=== PATIENT | male | born 1985 | race Caucasian/White ===

== ENCOUNTER 2017-11-17 20:47 | Inpatient (IN) ==
--- NOTE | 2017-11-17 21:21 | ED ---
HPI General Chief complaint: Psychiatric Symptoms Stated complaint: [facility] [place] [facility]/Psych Eval Time Seen by Provider: 11/17/17 21:06 History of Present Illness HPI narrative: 32-year-old male transferred here from [facility] under a Rose act for psychiatric evaluation. According to his Rose act form the patient "had guns and knife outPO called. Severely lacking insight." According to his paperwork the patient has been exhibiting paranoia, hyper mu-ism thought processes as well as suicidal ideation. Gone up to his head according to his paperwork. Patient reports that he was feeling suicidal briefly but is not anymore. Denies any homicidal ideation, auditory visual endorses marijuana use, denies any other drug use. Symptoms are moderate, duration unknown, no obvious aggravating or relieving with he has no medical complaints at this time. He was medically cleared at [facility]. Related Data Allergies Allergy/AdvReac Type Severity Reaction Status Date / Time No Known Allergies Allergy Unverified 11/17/17 21:15 Review of Systems Except as stated in HPI: all other systems reviewed are negative Exam Narrative Exam Narrative: GENERAL: Well-developed well-nourished male in no acute distress SKIN: Warm and dry. HEAD: Atraumatic. Normocephalic. EYES: Pupils equal and round. No scleral icterus. No injection or drainage. ENT: No nasal bleeding or discharge. Mucous membranes pink and moist. NECK: Trachea midline. No JVD. CARDIOVASCULAR: Regular rate and rhythm. No murmur appreciated. RESPIRATORY: No accessory muscle use. Clear to auscultation. Breath sounds equal bilaterally. GASTROINTESTINAL: Abdomen soft, non-tender, nondistended. Hepatic and splenic margins not palpable. MUSCULOSKELETAL: No obvious deformities. No clubbing. No cyanosis. No edema. NEUROLOGICAL: Awake and alert. No obvious cranial nerve deficits. Motor grossly within normal limits. Normal speech. Medical Decision Making MDM Narrative Medical decision making narrative: Mental health screening discussed with the patient. Psychiatric screen ordered. I reviewed his lab work from [facility]. Urinalysis, CBC, CMP, acetaminophen and salicylate levels, alcohol level with no significant abnormalities. Drug screen was positive for cannabinoids otherwise unremarkable. He remains medically cleared. Differential Diagnosis Differential Diagnosis: Bipolar disorder, acute psychosis, schizophrenia, schizoaffective disorder, adjustment reaction, major depressive disorder, substance-induced mood disorder Discharge Plan Discharge Disposition Patient Disposition: 30 Still Patient Discharge Condition Condition: Stable Discharge Details Diagnosis: Encounter for medical clearance for patient hold Physicians Team ED Provider: Arsalan Luo ED Midlevel Provider: Mohan Clark Discharge Interventions Interventions: Vital Signs Last Done: 11/17/17 21:00 Status ED Status: With Doctor
[2017-11-18] MEDS ORDERED: Aluminum/Magnesium/Simethacone Susp 30 ML UDC PO PRN (08:25)
[2017-11-18] MEDS ORDERED: Bisacodyl 10 MG Supp RECTAL PRN (08:25)
[2017-11-18] MEDS ORDERED: Haloperidol Inj 5 MG/ML Ampul IM PRN (08:25)
--- NOTE | 2017-11-18 14:44 | P.HPPSY ---
Provisional Diagnosis Admission Date: November 18, 2017 08:25 [place] I.: Unspecified psychosis, R/O substance-induced psychosis, r/o first break of schizophrenia, cannabis use disorder Competence Certification of Person's Competence To Provide Express and Informed Consent I have personally examined Hussein Cummins, a person being served at [facility] on, November 18, 2017 1413. Express and informed consent means consent voluntarily given in writing, by a competent person, after sufficient explanation and disclosure of the subject matter involved to enable the person to make a knowing and willful decision without any element of force, fraud, deceit, duress, or other form of constraint or coercion. This person is 18 years of age or older, is not now known to be incompetent to consent to treatment with a guardian advocate, and does not have a health care surrogate or proxy currently making medical treatment decisions. I have found this person to be one of the following: [] Competent to provide express and informed consent, as defined above, for voluntary admission to this facility and is competent to provide express and informed consent for treatment. He/she has the consistent capacity to make well reasoned, willful, and knowing decisions concerning his or her medical or mental health treatment. The person fully and consistently understands the purpose of the admission for examination/placement and is fully capable of personally exercising all rights assured [place] Incompetent to provide express and informed consent to voluntary admission, and this is incompetent to provide express and informed consent to treatment. The person must be transferred to involuntary status and a petition for a guardian advocate filed with the Circuit Court. [x] Refusing to provide express and informed consent to voluntary admission but is competent to provide express and informed consent for treatment. The person must be discharged or transferred to involuntary status. Form shall be completed within 24 hours of a person's arrival at the receiving facility and filed in the clinical record of each person: 1. Admitted on a voluntary basis 2. Permitted to provide express and informed consent to his/her own treatment 3. Allowed to transfer from involuntary to voluntary status 4. Prior to permitting a person to consent to his or her own treatment after having been previously found incompetent to consent to treatment. 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 According to his Rose act form the patient "had guns and knife outPO called. Severely lacking insight." According to his paperwork the patient has been exhibiting paranoia, hyper sabianist thought processes as well as suicidal ideation. Gone up to his head according to his paperwork. Patient reports that he was feeling suicidal briefly but is not anymore. Denies any homicidal ideation, auditory visual endorses marijuana use , denies any other drug use. Symptoms are moderate, duration unknown, no obvious aggravating or relieving with he has no medical complaints at this time. He was medically cleared at [facility]. EMR was reviewed. Case was discussed with ER staff. Collateral information from patient's father was obtained. On my psychiatric evaluation I find a patient that is calm, cooperative and pleasant. The patient reports that he has been increasingly paranoid, feeling that people want to hurt him, having very bizarre thinking "most probably secondary to the use of marijuana". The patient states that is very probable that some other drugs were laced in the marijuana. At the moment of my evaluation the patient is logical, coherent and relevant. He is oriented 3, he reports good mood, denies depressive symptoms, denies suicidal and homicidal ideation, denies visual and auditory hallucinations. The patient expressed concern about recent behavior, especially because "my mother was very severe schizophrenic, I do want to lose my job, I do want to lose my right to bare guns and my life". Collateral information from his father Kyaw Cummins, , was obtained. His father reports that he lives in [place], but once he was notified of the situation he flew to the [place]. He says that he had a very difficult experience with patient's mother when she became psychotic for the first time being of the patient. She became so psychotic and decompensated that her 2 kids had to be removed from her and she was institutionalized for several years. He says that he saw the patient yesterday for the first time in several months. At the beginning he thought that the patient was a baseline, he did not notice any bizarre behavior, but once patient 's girlfriend arrived to the hospital he noted that the patient became quite paranoid and started making accusatory statements that are out of character for him. He immediately knew that the patient was not right. He confirms that the patient does not have any previous psychiatric history, he has being a very hard working in his smart kid, never problematic or aggressive. He also confirms that the patient has multiple legal guns at home that has been lack up in safe compartments of the situation is clarified Past psychiatric history: The patient does not have any previous psychiatric history, no previous suicide attempts, no previous psychiatric hospitalizations , no previous use of psychotropics. Family psychiatric history: Patient mother's was diagnosed with schizophrenia when she was of the patient, she had numerous hospitalizations including long-term stay hospitalizations. Past medical history: The patient denies any medical problem. Substance history: The patient reports almost daily use of marijuana, but he denies the use of any other illegal drugs, he denies the use of alcohol. Social history: The patient was born and raised in [place], he lives in [place] with his girlfriend, he has no kids, is employed in a similar [employer] as a elevator service technician, his highest level of education is a college degree. - Inpatient Certification I certify that the inpatient services were ordered in accordance with Medicare regulations governing the order. This includes certification that hospital inpatient services are reasonable and necessary and in the case of services not specified as inpatient-only under 42 CFR 419.22(n), that they are appropriately provided as inpatient services in accordance to with the 2-midnight benchmark under 43 CFR 412.3(e) I certify that inpatient psychiatric hospital services are medically necessary. Evaluation and treatment and/or diagnostic testing are expected to improve the patient's condition. The patient needs on a daily basis, active treatment furnished directly by or requiring the supervision of inpatient psychiatric facility personnel. Estimated Total Length of Stay (Days): 7 Plans for Post Hospital Care: Home Review of Systems Constitutional: Denies anorexia, Denies body ache(s), Denies chills, Denies daytime sleepiness, Denies excessive sweating, Denies fatigue, Denies fever(s), Denies headache(s), Denies increased appetite, Denies lack of energy, Denies malaise, Denies night sweats, Denies weakness, Denies weight gain, Denies weight loss, Denies other Eyes: Denies blind spots, Denies blurry vision, Denies bulging eyes, Denies change in vision, Denies double vision, Denies discharge, Denies dry eyes, Denies floaters, Denies irritation, Denies itchy eyes, Denies loss of vision, Denies pain, Denies requires corrective lenses, Denies sensitivity to light, Denies other Ears, Nose, Mouth, and Throat: Denies abnormal hearing, Denies bleeding gums, Denies bad breath, Denies change in voice, Denies dental pain, Denies difficulty swallowing, Denies dizziness, Denies dry mouth, Denies ear discharge , Denies ear pain, Denies facial pain, Denies headache(s), Denies hearing loss, Denies hoarseness, Denies lip swelling, Denies nosebleed, Denies mouth lesions, Denies mouth pain, Denies nasal congestion, Denies nasal discharge, Denies nasal obstruction, Denies nasal trauma, Denies neck lump, Denies neck pain, Denies nose pain, Denies pain with swallowing, Denies poor balance, Denies post nasal drip, Denies ringing in the ears, Denies sinus pain, Denies sinus pressure , Denies sore throat, Denies throat swelling, Denies tongue swelling, Denies other Cardiovascular: Denies chest pain, Denies chest pain at rest, Denies chest pain with activity, Denies excessive sweating, Denies fainting, Denies fast heart rate, Denies foot swelling, Denies generalized swelling, Denies irregular heart rhythm, Denies leg pain with activity, Denies leg sores, Denies leg swelling, Denies lightheadedness, Denies radiating jaw, neck or arm pain, Denies rapid, pounding, or irregular heartbeat, Denies shortness of breath, Denies shortness of breath with activity, Denies shortness of breath when lying down, Denies shortness of breath causing sudden awakening, Denies slow heart rate, Denies other Respiratory: Denies change in phlegm color, Denies chest congestion, Denies cough, Denies coughing up blood, Denies excessive phlegm production, Denies pain on inspiration, Denies pain with cough, Denies shortness of breath, Denies shortness of breath with activity, Denies snoring, Denies stridor, Denies wheezing, Denies other Gastrointestinal: Denies abdominal pain, Denies belching, Denies black, tarry stools, Denies bloating, Denies bright, red blood in stools, Denies change in bowel habits, Denies constant urge to pass stool, Denies change in stools, Denies coffee ground vomit, Denies constipation, Denies cramping, Denies difficulty swallowing, Denies excessive passing of gas, Denies feeling full early, Denies heartburn, Denies incontinent of stools, Denies loose stools, Denies nausea, Denies pain with swallowing, Denies vomiting, Denies vomiting blood, Denies other Genitourinary: Denies blood in semen, Denies blood in urine, Denies decreased urination, Denies difficulty urinating, Denies difficulty with ejaculations, Denies erectile dysfunction, Denies genital lesions, Denies genital pain, Denies painful urination, Denies side pain, Denies frequent nighttime urination , Denies painful ejaculations, Denies penile discharge, Denies scrotal swelling , Denies testicle lump, Denies testicle pain, Denies urinary frequency, Denies urinary hesitancy, Denies urinary incontinence, Denies urinary urgency, Denies other Musculoskeletal: Denies abnormal walking, Denies back pain, Denies body aches, Denies decreased muscle mass, Denies deformity, Denies joint pain, Denies joint swelling, Denies limited joint movement, Denies loss of height, Denies muscle cramps, Denies muscle weakness, Denies neck pain, Denies numbness, Denies radiating pain into limb, Denies stiffness, Denies tingling, Denies other Skin/Breast: Denies acne, Denies bleeding lesions, Denies boil, Denies breast swelling, Denies breast skin changes, Denies breast pain, Denies breast lump, Denies change in breast shape, Denies change in hair, Denies change in skin color, Denies changing lesions, Denies dry skin, Denies excessive hair growth, Denies hair loss, Denies itching, Denies lesions, Denies nail changes, Denies new lesions, Denies nipple discharge, Denies non-healing lesions, Denies redness , Denies sensitivity to light, Denies rash, Denies skin pain, Denies skin ulcer , Denies sores, Denies stretch barker, Denies unusual bruising, Denies wounds, Denies yellowing of the skin, Denies other Neurologic: Denies abnormal hearing, Denies abnormal movements, Denies abnormal speech, Denies abnormal walking, Denies behavioral changes, Denies burning sensations, Denies confusion, Denies dizziness, Denies fainting, Denies frequent falls, Denies headache(s), Denies lack of coordination, Denies localized weakness, Denies loss of vision, Denies memory loss, Denies numbness, Denies other visual disturbances, Denies radiating pain, Denies restless legs, Denies convulsions, Denies seizure-like activity, Denies sensory deficit, Denies tingling, Denies tingling/numbness/burning sensations, Denies tremor(s), Denies unsteadiness, Denies weakness, Denies other Psychiatric: Reports paranoia [facility] - History History Provided By: Medical Record - Medical History Medical History: Medical History (Last Updated 11/18/17 @ 00:52 by Monica Lomeli RN) Patient denies medical problems - Surgical History Surgical History: Surgical History (Last Updated 11/18/17 @ 00:52 by Monica Lomeli RN) No history of previous surgery - Tobacco History Smoking Status: Never smoker - Alcohol History How Often Do You Have a Drink Containing Alcohol: Never - Substance Use History Substance History: Active Abuse - Substance Use Type Marijuana Status: Active Route Used: Inhalation - Immunization History Tetanus Immunization: Unsure Hx Influenza Vaccine This Season: No Quality Measures - Patient Strengths Patient's strengths (minimum of 2): Good level of education, family support Medications and Allergies Active Medications: Active Medications Al Hydrox/Mg Hydrox/Simethicone (Mag-Al Plus Susp Liq) 30 ml PO Q6H PRN PRN Reason: DYSPEPSIA Al Hydroxide/Mg Hydroxide (Milk Of Magnesia Liq) 30 ml PO Q12H PRN PRN Reason: Mild Constipation Aripiprazole (Abilify) 2 mg PO DAILY SASCHA Bisacodyl (Dulcolax Supp) 10 mg RECTAL DAILY PRN PRN Reason: SEVERE CONSITIPATION Diphenhydramine HCl (Benadryl) 50 mg PO Q6H PRN PRN Reason: For mild anxiety and/or EPS Haloperidol Lactate (Haldol Inj) 5 mg IM Q6H PRN PRN Reason: SEVERE AGITATION Lactulose (Lactulose Liq) 30 ml PO DAILY PRN PRN Reason: SEVERE CONSITIPATION Lorazepam (Ativan Inj) 1 mg IM Q6H PRN PRN Reason: MODERATE TO SEVERE ANXIETY Senna/Docusate Sodium (Valencia-Colace) 1 tab PO BID SASCHA Sennosides (Senokot) 17.2 mg PO Q12H PRN PRN Reason: Moderate Constipation Allergies Allergy/AdvReac Type Severity Reaction Status Date / Time No Known Allergies Allergy Unverified 11/17/17 21:15 Home Medications Medication Instructions Recorded Confirmed Type olanzapine [Zyprexa] 5 mg PO DAILY 11/17/17 11/17/17 History Exam Vital signs: Vital Signs 11/17/17 21:00 11/18/17 05:33 Temperature 99.1 F Pulse Rate 73 Respiratory Rate 18 18 Blood Pressure 148/87 H Pulse Oximetry 97 Intake & Output 11/17/17 11/18/17 11/18/17 18:59 06:59 18:59 Weight 91.172 kg Narrative: No withdrawal symptoms, no signs of intoxication, no gait disturbance, no EPS, no psychomotor agitation or retarded Mental Status Examination Appearance: Appropriate Consciousness: Alert Orientation: x4 Speech: Unremarkable Language: Adequate Fund of Knowledge: Adequate Memory: Unremarkable Mood: Appropriate Affect: Appropriate Thought Process & Associations: Intact Thought Content: Appropriate Hallucination Type: None Delusion Type: Paranoid Suicidal Ideation: No Suicidal Plan: No Suicidal Intention: No Homicidal Ideation: No Homicidal Plan: No Homicidal Intention: No Insight: Fair Judgment: Impulsive Assessment and Plan - Assessment (1) Unspecified psychosis Code(s): F29 - Unspecified psychosis not due to a substance or known physiological condition Status: Acute - Plan Plan: Estimated LOS: [] days On my psychiatric evaluation today I find a patient that is calm, cooperative and pleasant. The patient is to be quite insightful about recent episodes of paranoia, agitation, auditory hallucinations and even suicidal ideation in the context of what seems to be new onset psychosis. Apparently for the last 3 or 4 days the patient has been displaying out of character behavior, making accusations of people following him, trying to hurt him, hearing voices that are not present, hyperreligious, and even making suicidal and homicidal statements. The patient believes that "some drugs" could be placed his marijuana, but toxicology has been consistently negative since he was admitted in [facility]. Patient does not have any previous psychiatric history, no previous psychiatric hospitalizations, no previous suicide attempts, but he does have a very important biological and genetic component that could increase the risk of psychosis/schizophrenia since his mother had severe schizophrenia and he uses cannabis persistently. The patient will be admitted in psychiatry for stabilization and safety. I will start Abilify 2 mg daily. He is legal gun has been already removed from his house by his father. Patient would be transferred to [address]. I will consult psychiatry for second opinion. Extensive support, motivation and psychoeducation provided. Justification for Continued Inpatient Stay: The patient will be admitted in psychiatry for stabilization and safety.
[2017-11-18] MEDS: Senna/Docusate Sodium 8.6/50 MG Tablet PO SCH (21:00)
[2017-11-18] MEDS: ARIPiprazole 2 MG Tablet PO SCH (21:00)
[2017-11-19 08:40] LABS: Anion Gap 7 meq/L (5-15); Blood Urea Nitrogen 15 mg/dL (7-18); Calcium 8.8 mg/dL (8.5-10.1); Carbon Dioxide 27.6 meq/L (21.0-32.0); Chloride 106 meq/L (98-107); Cholesterol 147 mg/dL (120-200); Glomerular Filtration Rate Greater Than 89 mL/min (>89); Glucose,Random 86 mg/dL (74-106); Potassium 4.2 meq/L (3.5-5.1); Sodium 141 meq/L (136-145); Triglycerides 113 mg/dL (42-150)
[2017-11-19 08:43] LABS: Chol/HDL Ratio 4.52 Ratio; HDL Cholesterol 32.5 mg/dL (40.0-60.0); LDL Cholesterol,Calculated 92 mg/dL (0-99)
[2017-11-19] MEDS: Senna/Docusate Sodium 8.6/50 MG Tablet PO SCH (09:58)
[2017-11-19] MEDS: ARIPiprazole 2 MG Tablet PO SCH (09:59)
[2017-11-19 10:31] LABS: Hemoglobin A1c 4.8 % (4.3-6.0)
--- NOTE | 2017-11-19 14:31 | P.PNPSY ---
Subjective Remarks: This is a request for second opinion. Admission note was reviewed and I agree with the history. Patient was seen and case was discussed with nursing. Patient minimizes the severity of his actions. He continues to believe that his behavior is due to marijuana that may have been laced with something else. Affect is quite blunted. He does deny suicidal or homicidal ideation intent or plan. Compliant with medications Mental Status Examination Appearance: Appropriate Consciousness: Alert Orientation: x4 Speech: Unremarkable Language: Adequate Fund of Knowledge: Adequate Memory: Unremarkable Mood: Appropriate Affect: Appropriate Thought Process & Associations: Intact Thought Content: Appropriate Hallucination Type: None Delusion Type: Paranoid Suicidal Ideation: No Suicidal Plan: No Suicidal Intention: No Homicidal Ideation: No Homicidal Plan: No Homicidal Intention: No Insight: Fair Judgment: Impulsive Assessment and Plan - Assessment (1) Unspecified psychosis Code(s): F29 - Unspecified psychosis not due to a substance or known physiological condition Status: Acute - Plan Plan: I agree with the first opinion to continue petition. Criteria include acute psychosis Justification for Continued Inpatient Stay: Patient would decompensate in a less restrictive setting
[2017-11-20] MEDS: Senna/Docusate Sodium 8.6/50 MG Tablet PO SCH ×3 (08:46→22:25)
[2017-11-20] MEDS: ARIPiprazole 2 MG Tablet PO SCH (08:46)
--- NOTE | 2017-11-20 14:31 | P.PNPSY ---
Subjective Remarks: Patient was seen and case discussed with nursing. Per nursing patient may be having internal stimulation. He was seen sitting by himself in a fixed position as if meditating outside. During my interview he is anxious and mildly tangential. However no delusions were elicited and he denies auditory or visual denies suicidal or homicidal ideation intent or plan. We discussed locking up the gun yesterday Mental Status Examination Appearance: Appropriate Consciousness: Alert, Vigilant Orientation: x4 Speech: Unremarkable Language: Adequate Fund of Knowledge: Adequate Memory: Unremarkable Mood: Appropriate Affect: Appropriate Thought Process & Associations: Intact Thought Content: Appropriate Hallucination Type: None Delusion Type: Paranoid Suicidal Ideation: No Suicidal Plan: No Suicidal Intention: No Homicidal Ideation: No Homicidal Plan: No Homicidal Intention: No Insight: Fair Judgment: Impulsive Assessment and Plan - Assessment (1) Unspecified psychosis Code(s): F29 - Unspecified psychosis not due to a substance or known physiological condition Status: Acute - Plan Plan: Continue current treatment plan Justification for Continued Inpatient Stay: Patient would decompensate in a less restrictive setting
[2017-11-21] MEDS: ARIPiprazole 2 MG Tablet PO SCH (09:51)
[2017-11-21] MEDS: Senna/Docusate Sodium 8.6/50 MG Tablet PO SCH ×2 (09:51→21:22)
--- NOTE | 2017-11-21 15:54 | P.PNPSY ---
Subjective Remarks: The patient was seen today for psychiatric reevaluation. Documentation from weekend psychiatrist was reviewed. The case was discussed with nursing charge. On psychiatric evaluation today the patient is calm, cooperative, reporting that he feels better. The patient states that is difficult for him to understand what happened, he continues to blame the marijuana that he use, he seems to be avoiding the fact that a primary psychosis could be a potential source of his presentation. He denies suicidal and homicidal ideation, he denies visual and auditory hallucinations. No increased paranoia, no aggressive behavior, no agitation has been observed, even though the patient presents a kind of odd affect. He has been compliant with his medications, no significant side effects Review of Systems Constitutional: Denies anorexia, Denies body ache(s), Denies chills, Denies daytime sleepiness, Denies excessive sweating, Denies fatigue, Denies fever(s), Denies headache(s), Denies increased appetite, Denies lack of energy, Denies malaise, Denies night sweats, Denies weakness, Denies weight gain, Denies weight loss, Denies other Eyes: Denies blind spots, Denies blurry vision, Denies bulging eyes, Denies change in vision, Denies double vision, Denies discharge, Denies dry eyes, Denies floaters, Denies irritation, Denies itchy eyes, Denies loss of vision, Denies pain, Denies requires corrective lenses, Denies sensitivity to light, Denies other Ears, Nose, Mouth, and Throat: Denies abnormal hearing, Denies bleeding gums, Denies bad breath, Denies change in voice, Denies dental pain, Denies difficulty swallowing, Denies dizziness, Denies dry mouth, Denies ear discharge , Denies ear pain, Denies facial pain, Denies headache(s), Denies hearing loss, Denies hoarseness, Denies lip swelling, Denies nosebleed, Denies mouth lesions, Denies mouth pain, Denies nasal congestion, Denies nasal discharge, Denies nasal obstruction, Denies nasal trauma, Denies neck lump, Denies neck pain, Denies nose pain, Denies pain with swallowing, Denies poor balance, Denies post nasal drip, Denies ringing in the ears, Denies sinus pain, Denies sinus pressure , Denies sore throat, Denies throat swelling, Denies tongue swelling, Denies other Cardiovascular: Denies chest pain, Denies chest pain at rest, Denies chest pain with activity, Denies excessive sweating, Denies fainting, Denies fast heart rate, Denies foot swelling, Denies generalized swelling, Denies irregular heart rhythm, Denies leg pain with activity, Denies leg sores, Denies leg swelling, Denies lightheadedness, Denies radiating jaw, neck or arm pain, Denies rapid, pounding, or irregular heartbeat, Denies shortness of breath, Denies shortness of breath with activity, Denies shortness of breath when lying down, Denies shortness of breath causing sudden awakening, Denies slow heart rate, Denies other Respiratory: Denies change in phlegm color, Denies chest congestion, Denies cough, Denies coughing up blood, Denies excessive phlegm production, Denies pain on inspiration, Denies pain with cough, Denies shortness of breath, Denies shortness of breath with activity, Denies snoring, Denies stridor, Denies wheezing, Denies other Gastrointestinal: Denies abdominal pain, Denies belching, Denies black, tarry stools, Denies bloating, Denies bright, red blood in stools, Denies change in bowel habits, Denies constant urge to pass stool, Denies change in stools, Denies coffee ground vomit, Denies constipation, Denies cramping, Denies difficulty swallowing, Denies excessive passing of gas, Denies feeling full early, Denies heartburn, Denies incontinent of stools, Denies loose stools, Denies nausea, Denies pain with swallowing, Denies vomiting, Denies vomiting blood, Denies other Genitourinary: Denies blood in semen, Denies blood in urine, Denies decreased urination, Denies difficulty urinating, Denies difficulty with ejaculations, Denies erectile dysfunction, Denies genital lesions, Denies genital pain, Denies painful urination, Denies side pain, Denies frequent nighttime urination , Denies painful ejaculations, Denies penile discharge, Denies scrotal swelling , Denies testicle lump, Denies testicle pain, Denies urinary frequency, Denies urinary hesitancy, Denies urinary incontinence, Denies urinary urgency, Denies other Psychiatric: Reports other (odd affect ), Denies abnormal sleep pattern, Denies anxiety, Denies behavioral changes, Denies change in appetite, Denies change in sex drive, Denies confusion, Denies depression, Denies difficulty concentrating , Denies hearing things others do not hear, Denies hopelessness, Denies irritability, Denies lack of enjoyment, Denies memory loss, Denies mood swings, Denies panic attacks, Denies paranoia, Denies seeing things others do not see, Denies sensing things others do not sense, Denies tactile hallucinations, Denies thoughts of hurting/killing others, Denies thoughts of hurting/killing yourself Mental Status Examination Appearance: Appropriate Consciousness: Alert, Vigilant Orientation: x4 Speech: Unremarkable Language: Adequate Fund of Knowledge: Adequate Memory: Unremarkable Mood: Appropriate Affect: Appropriate Thought Process & Associations: Intact Thought Content: Appropriate Hallucination Type: None Delusion Type: Paranoid Suicidal Ideation: No Suicidal Plan: No Suicidal Intention: No Homicidal Ideation: No Homicidal Plan: No Homicidal Intention: No Insight: Fair Judgment: Impulsive Assessment and Plan - Assessment (1) Unspecified psychosis Code(s): F29 - Unspecified psychosis not due to a substance or known physiological condition Status: Acute - Plan Plan: The patient does not show an evident symptomatology of psychosis, but he is quite odd and bizarre. I will increase the Abilify to 5 mg today. If the patient remains with current MSE, most likely will be discharged tomorrow Justification for Continued Inpatient Stay: Patient has an elevated risk to decompensate at a lower level of care
[2017-11-22] MEDS ORDERED: ARIPiprazole 5 MG Tablet PO SCH (09:00)
[2017-11-22] MEDS: Senna/Docusate Sodium 8.6/50 MG Tablet PO SCH (10:35)
--- NOTE | 2017-11-22 14:09 | P.DSPSY ---
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 According to his Rose act form the patient "had guns and knife outPO called. Severely lacking insight." According to his paperwork the patient has been exhibiting paranoia, hyper congregation thought processes as well as suicidal ideation. Gone up to his head according to his paperwork. Patient reports that he was feeling suicidal briefly but is not anymore. Denies any homicidal ideation, auditory visual endorses marijuana use , denies any other drug use. Symptoms are moderate, duration unknown, no obvious aggravating or relieving with he has no medical complaints at this time. He was medically cleared at [facility]. EMR was reviewed. Case was discussed with ER staff. Collateral information from patient's father was obtained. On my psychiatric evaluation I find a patient that is calm, cooperative and pleasant. The patient reports that he has been increasingly paranoid, feeling that people want to hurt him, having very bizarre thinking "most probably secondary to the use of marijuana". The patient states that is very probable that some other drugs were laced in the marijuana. At the moment of my evaluation the patient is logical, coherent and relevant. He is oriented 3, he reports good mood, denies depressive symptoms, denies suicidal and homicidal ideation, denies visual and auditory hallucinations. The patient expressed concern about recent behavior, especially because "my mother was very severe schizophrenic, I do want to lose my job, I do want to lose my right to bare guns and my life". Collateral information from his father Kyaw Cummins, , was obtained. His father reports that he lives in [place], but once he was notified of the situation he flew to the [place]. He says that he had a very difficult experience with patient's mother when she became psychotic for the first time being of the patient. She became so psychotic and decompensated that her 2 kids had to be removed from her and she was institutionalized for several years. He says that he saw the patient yesterday for the first time in several months. At the beginning he thought that the patient was a baseline, he did not notice any bizarre behavior, but once patient 's girlfriend arrived to the hospital he noted that the patient became quite paranoid and started making accusatory statements that are out of character for him. He immediately knew that the patient was not right. He confirms that the patient does not have any previous psychiatric history, he has being a very hard working in his [employer] kid, never problematic or aggressive. He also confirms that the patient has multiple legal guns at home that has been lack up in safe compartments of the situation is clarified Past psychiatric history: The patient does not have any previous psychiatric history, no previous suicide attempts, no previous psychiatric hospitalizations , no previous use of psychotropics. Family psychiatric history: Patient mother's was diagnosed with schizophrenia when she was of the patient, she had numerous hospitalizations including long-term stay hospitalizations. Past medical history: The patient denies any medical problem. Substance history: The patient reports almost daily use of marijuana, but he denies the use of any other illegal drugs, he denies the use of alcohol. Social history: The patient was born and raised in [facility], he lives in [place] with his girlfriend, he has no kids, is employed in a similar [employer] as a commercial hvac technician, his highest level of education is a college degree. Tobacco Use In Past 30 Days: No How Often Do You Have a Drink Containing Alcohol: Never Hospital Course: The patient was admitted initially because he was having an new onset psychosis consistent in hyper religiosity, paranoia, disorganized behavior, suicidal and homicidal ideation. The main concern was that the patient had illegal glands at home and he was quite preoccupied with people wanting to harm him. When he was admitted he presented calm, cooperative, logical, coherent and relevant. He was able to verbalize and anxiety of his psychosis, but he was quite focused that his psychosis was secondary to drugs laced in the marijuana. He was admitted in the psychiatric unit, psychosocial and psychiatric assessments were performed, safety measures were taken, collateral information from his father and girlfriend were contacted. He was started in Abilify 2 mg that was raised to 5 mg daily. The patient showed a good response to the medication. He initially had altered affect, he was kind of internally preoccupied at times, but at the moment of discharge the patient seems to be at baseline, and this fact is confirmed by his father and girlfriend. - Discharge Discharge Date: 11/22/17 Discharge Disposition: Home - Discharge Time > 30 minutes Mental Status Examination Appearance: Appropriate Consciousness: Alert, Vigilant Orientation: x4 Speech: Unremarkable Language: Adequate Fund of Knowledge: Adequate Memory: Unremarkable Mood: Appropriate Affect: Appropriate Thought Process & Associations: Intact Thought Content: Appropriate Hallucination Type: None Delusion Type: Paranoid Suicidal Ideation: No Suicidal Plan: No Suicidal Intention: No Homicidal Ideation: No Homicidal Plan: No Homicidal Intention: No Insight: Fair Judgment: Impulsive Discharge/Advance Care Plan - Results Vital Signs: Last Vital Signs Temp 97.6 F 11/22/17 05:58 Pulse 77 11/22/17 05:58 Resp 18 11/22/17 05:58 BP 123/74 11/22/17 05:58 Pulse Ox 98 11/22/17 05:58 Lab Results: Laboratory Results Hemoglobin A1c 4.8 % (4.3-6.0) 11/19/17 06:52 Triglycerides 113 mg/dL (42-150) 11/19/17 06:52 Cholesterol 147 mg/dL (120-200) 11/19/17 06:52 LDL Cholesterol, Calc 92 mg/dL (0-99) 11/19/17 06:52 HDL Cholesterol 32.5 mg/dL (40.0-60.0) L 11/19/17 06:52 Summary of Procedures: None Pending Results: None - Medications Number of antipsychotic medications at discharge: 1 - Discharge Care Plan Goals to Promote Your Health: * To prevent worsening of your condition and complications * To maintain your health at the optimal level Directions to Meet Your Goals: Take your medications as prescribed Follow your dietary instruction Follow activity as directed Keep your appointments as scheduled Take your immunizations and boosters as scheduled If your symptoms worsen call your PCP, if no PCP go to Urgent Care Center or Emergency Room For 15/11 questions related to your inpatient stay or results of tests pending at discharge, please contact Dr. Albert Guerrero MD at [phone] Smoking is Dangerous to Your Health. Avoid second hand smoking
== END 2017-11-22 16:00 | disposition home or self-care (01) ==
LOC: NEPJ 20:47 → NEDA 11-18 08:25 → H260 11-18 11:35
PROVIDERS: ADMIT Psychiatry & Neurology Psychiatry; ATTEND Psychiatry & Neurology Psychiatry
DX: Z81.8 Family history of other mental and behavioral disorders; F29 Unspecified psychosis not due to a substance or known physiological condition; R45.850 Homicidal ideations; F12.90 Cannabis use, unspecified, uncomplicated; F22 Delusional disorders; R45.851 Suicidal ideations